=== PATIENT | female | born 1965 | race Caucasian/White ===

== ENCOUNTER 2019-05-17 08:17 | Outpatient (CLI) | payer OTHER, SELFPAY ==
[2019-05-17 14:20] LABS: Free T4 Free Thyroxine 1.08 ng/mL (0.78-2.19)
== END 2019-05-17 08:18 | disposition home or self-care (01) ==
LOC: ANHWCLAB 08:21
PROVIDERS: PCP Internal Medicine Endocrinology, Diabetes & Metabolism; Visit Provider Internal Medicine Endocrinology, Diabetes & Metabolism
DX: E03.9 Hypothyroidism, unspecified (principal)
CPT/HCPCS: 36415; 84439; 84443

== ENCOUNTER 2022-05-07 08:49 | Outpatient (CLI) | payer OTHER, SELFPAY ==
[2022-05-07 17:05] LABS: Free T4 Free Thyroxine 1.12 ng/mL (0.78-2.19)
== END 2022-05-07 08:50 | disposition home or self-care (01) ==
LOC: ANHWCLAB 08:50
PROVIDERS: PCP Internal Medicine Endocrinology, Diabetes & Metabolism; Visit Provider Internal Medicine Endocrinology, Diabetes & Metabolism
DX: E03.9 Hypothyroidism, unspecified (principal)
CPT/HCPCS: 36415; 84439; 84443

== ENCOUNTER 2024-08-23 12:27 | Outpatient (CLI) | payer OTHER, SELFPAY ==
--- NOTE | ~2024-08-23 | DEXA_ITS ---
Bone Density Report Name: LUISA BARLOW Age: 59 Sex: Female Ethnicity: White Date of : 1965 Indication: postmenopausal; screening for osteoporosis; parental hip fracture; Referring Provider: ALMAZ CHI Study: Bone densitometry was performed. Exam Date: August 23, 2024 Accession number: [id number] Bone Density: Region BMD T-score Z-score Classification AP Spine(L1-L4) 0.688 -3.3 -1.8 Osteoporosis Femoral Neck (Left) 0.571 -2.5 -1.2 Osteoporosis Total Hip (Left) 0.683 -2.1 -1.1 Osteopenia Femoral Neck (Right) 0.629 -2.0 -0.6 Osteopenia Total Hip (Right) 0.721 -1.8 -0.8 Osteopenia Total Hip Mean 0.702 -2.0 -1.0 Osteopenia World Health Organization criteria for BMD impression classify patients as: Normal (T-score at or above -1.0), Osteopenia (T-score between -1.0 and -2.5), or Osteoporosis (T-score at or below -2.5). 10-year Fracture Risk: FRAX not reported because: Some T-score for Spine Total or Hip Total or Femoral Neck at or below -2.5 Clinical Information Provided by Patient: Parent has had a hip fracture Has used the following medications: Vitamin D, Calcium Patient maximum height was 66 Menopause Age: 50 Drinks caffeinated beverages Onset of menses at age 10 Number of children 2 Impression: The patient has osteoporosis, based on the Total Spine T-score. The patient has risk factors, including: parental hip fracture. Discussion: INCREASED RISK OF FRACTURE. BONE DENSITY IS UNDESIRABLY LOW AT ONE OR MORE SKELETAL SITES, CONSISTENT WITH POSTMENOPAUSAL OSTEOPOROSIS. This patient's lowest T-score meets the World Health Organization's (WHO) criteria for osteoporosis at one or more sites (T-score -2.5 or below). In untreated patients, the risk of osteoporotic fracture increases approximately two-fold for each 1.0 SD decrease in T-score. Low bone density is not the only risk factor for fracture; also consider factors such as patient's age, frailty or poor health, risk of falling, risk of injury, previous osteoporotic fracture, family history of osteoporosis, cigarette smoking, low body weight, etc. Not everyone with low bone mineral density has osteoporosis; osteomalacia and other metabolic bone disorders should also be considered. Patients who have osteoporosis should be evaluated for specific diseases and conditions (secondary causes) that may cause or contribute to bone loss. The [place] [employer] Endocrinologists (AACE) and National Osteoporosis Foundation (NOF) recommend pharmacologic intervention for all postmenopausal women whose T-score is in this range. The patient should follow a healthful lifestyle (good nutrition with adequate calcium and vitamin D, and appropriate weight-bearing exercise). Follow-Up: Consider a repeat BMD and Vertebral Fracture Assessment (VFA) exam in 2 years or sooner if medically necessary, to reassess this patient's status. Reported by: DANIKA on 08/23/2024 1:02:00 PM. Reviewed, dictated and finalized at location [facility]. [facility]
--- OUTSIDE RECORDS SUMMARY | 2024-08-23 12:50 | XMS_ITS | Clinical Summary ---
Author Organization [facility] [address] [place] [address] Care Team Providers Care Pluck Separator Name Role Phone Breanna Castañeda MD Primary Care Provider [phone] Allergies Active Allergy Reactions Criticality Noted Date Comments Sulfamethoxazole-Trimethoprim Hives Medium 2013 Medications dilTIAZem CD 180 mg 24 hr capsule Take by mouth daily 2 Active levothyroxine (SYNTHROID) 75 mcg tablet Take 75 mcg by mouth daily 2 Active fluticasone propionate (FLONASE) 50 mcg/actuation nasal spray fluticasone propionate 50 mcg/actuation nasal spray,suspension Active biotin 10 mg tablet Active acidophilus-pec tin, citrus 100 million cell-10 mg capsule Take by mouth Activ e loratadine (CLARITIN) 10 mg tablet Take 10 mg by mouth daily Active cholecalciferol (VITAMIN D-3) 400 unit capsule Active vitamin B complex capsule Take 1 capsule by mouth daily Active cyanocobalamin, vitamin B-12, 1,000 mcg tablet extended release Take by mouth Active multivitamin capsule Take 1 capsule by mouth daily Active omeprazole (PriLOSEC) 20 mg capsuleIndicati ons:Laryngophar yngeal reflux (LPR) Take 1 capsule (20 mg total) by mouth 2 (two) times a day before breakfast and dinner 60 capsule 2 2 Active famotidine (PEPCID) 20 mg tabletIndicatio ns:Laryngophary ngeal reflux (LPR) Take 1 tablet (20 mg total) by mouth nightly 30 tablet 3 Active diclofenac sodium (VOLTAREN) 1 % gel diclofenac 1 % topical gel apply to affected area prn Active Active Problems Problem Noted Date Diagnosed Date Hoarseness 03/24/2022 Laryngopharyngeal reflux (LPR) 03/24/2022 PND (post-nasal drip) 03/24/2022 Allergic rhinitis Surgical History Surgery Date Site/Laterality Comments LIPOMA RESECTION from breast BREAST EXCISIONAL BIOPSY Lipoma Medical History Medical History Date Comments Allergic rhinitis Heart disease Thyroid disease Tinnitus Family History Medical History Relation Name Comments Cancer Father Thyroid disease Father Asthma Mother Heart disease Mother Thyroid disease Mother Breast cancer Neg Hx Relation Name Status Comments Father Mother Social History Tobacco Use Types Packs/Day Years Used Date Smoking Tobacco: Never Smokeless Tobacco: Never Tobacco Cessation:Counseling Given: Not Answered Personal Safety Answer Date Recorded Getting School Help Needed Not on file 04/20 Comments No Sex and Gender Information Value Date Recorded Sex Assigned at Not on file 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 Gender Identity Not on file Sexual Orientation Not on file Obstetrics History Para Term AB IAB SAB Ectopic Multiple Livin g Live Births 3 2 2 Date Outcome GA Total Labor Labor/2nd/3rd Weight Sex Type Anes PTL Ussu A1 A5 Name Clin Term Term Last Filed Vital Signs Vital Sign Reading Time Taken Comments Blood Pressure - - Pulse - - Temperature - - Respiratory Rate 18 03/22/2022 1:56 PM SPRING UP SUPERVISOR Oxygen Saturation - - Inhaled Oxygen Concentration - - Weight 59 kg (130 lb) 04/23/2022 1:23 PM SPRING UP SUPERVISOR Height 167.6 cm (5' 6 ) 04/23/2022 1:23 PM SPRING UP SUPERVISOR Body Mass Index 20.98 04/23/2022 1:23 PM SPRING UP SUPERVISOR Plan of Treatment Health Maintenance Due Date Last Done Comments Cervical Cancer Screening 1963 Colon Cancer Screening-Colonoscopy 1963 Depression Screening 1963 Hepatitis C Screening 1963 Hepatitis B Screening 1981 Regular Well Visit/Exam 18-64 1981 Zoster Vaccine (2 of 2) 06/30/2023 05/05/2023 Covid-19 Vaccine ( season) 2023 09/19/2021, 03/02/2021, 05/30/2020, Additional history exists Breast Cancer Screening-Mammogram 11/04/2024 11/05/2023, 10/17/2022, 11/14/2017, Additional history exists DTaP/Tdap/Td Vaccine (3 - Td or Tdap) 10/25/2029 10/26/2019, 02/25/2008 Influenza Vaccine Completed 02/03/2024, , 01/29/2022, Additional history exists Pneumococcal vaccine <65 Aged Out No longer eligible based on patient's age to complete this topic Procedures Procedure Name Priority Date/Time Associated Diagnosis Comments SCREENING MAMMOGRAM BILATERAL W TONY Schedule Routine, Read Routine (OP Routine) 11/05/2023 3:28 PM CDT Screening mammogram, encounter for from Last 3 Months or Most Recently Relevant to Health Maintenance Results * Screening Mammogram Bilateral W Tony (11/05/2023 3:28 PM CDT) Anatomical Region Laterality Modality Breast Bilateral Mammography Impressions 11/05/2023 3:34 PM CDT BI-RADS ATLAS category (overall): 1 - Negative There is no mammographic evidence of malignancy. A 1 year screening mammogram is recommended. The patient has been or will be contacted. We recommend annual screening mammography for women at average risk of breast cancer beginning at age 40, based on guidelines of the [employer] (ACR Practice Parameter for the Performance of Screening and Diagnostic Mammography) and [employer]. For women with and elevated risk of breast cancer, please refer to the ACR Practice Parameter for specific screening recommendations. The patient will be entered into a reminder system with a target due date of 1 year for her next screening exam. Narrative 11/05/2023 3:34 PM CDT Screening Mammogram Bilateral W Tony: 11/05/23 The study was acquired using full field digital technology and interpreted from soft copy. 2D digital mammographic views, as well as 3D digital tomosynthesis were performed in the CC and MLO projections. CLINICAL: Screening mammogram, encounter for. No relevant medical history has been documented for this patient. History of breast cancer in Neg Hx. COMPARISONS: 10/17/2022 Screening Mammogram Bilateral W Tony BREAST TISSUE: The breasts are heterogeneously dense, which may obscure small masses. FINDINGS: No suspicious masses, suspicious calcifications, or other suspicious findings are seen within either breast. There has been no suspicious change. us Self Screening Mammogram IMG MAMMO PROCEDURES Fi nal Result from Last 3 Months or Most Recently Relevant to Health Maintenance Insurance Care Teams Pluck Separator Relationship Specialty Start Date End Date Breanna Castañeda MD [address] [address] PCP - General Family Medicine 01/11/22
--- OUTSIDE RECORDS SUMMARY | 2024-08-23 12:51 | XMS_ITS | Referral Summary ---
Author Organization [facility] [address] [place] [address] Care Team Providers Care Heat Treat Worker Name Role Phone Breanna Castañeda MD Primary Care Provider Allergies Active Allergy Reactions Criticality Noted Date [...] 03/24/2022 PND (post-nasal drip) 03/24/2022 Allergic rhinitis Social History Tobacco Use Types Packs/Day Years Used Date Smoking Tobacco: Never Smokeless Tobacco: Never Tobacco Cessation:Counseling Given: Not Answered Personal Safety Answer Date Recorded Getting School Help Needed Not on file 04/20 Comments No Sex and Gender Information Value Date Recorded Sex Assigned at Not on file Legal Sex Female 1:04 PM IT INTERN Gender Identity Not on file Sexual Orientation Not on file Last Filed Vital Signs Vital Sign Reading Time Taken Comments Blood Pressure - - Pulse - - Temperature - - Respiratory Rate 18 03/22/2022 1:56 PM IT INTERN Oxygen Saturation - - Inhaled Oxygen Concentration - - Weight 59 kg (130 lb) 04/23/2022 1:23 PM IT INTERN Height 167.6 cm (5' 6 ) 04/23/2022 1:23 PM IT INTERN Body Mass Index 20.98 04/23/2022 1:23 PM IT INTERN Plan of Treatment Not on file Procedures Procedure Name Priority Date/Time Associated Diagnosis [...] age 40, based on guidelines of the [employer] (ACR Practice Parameter for the Performance of Screening and Diagnostic Mammography) and [employer]. For women [...] Relevant to Health Maintenance Insurance Care Teams Heat Treat Worker Relationship Specialty Start Date End Date Breanna Castañeda MD [address] [address] PCP - General Family Medicine 01/11/22
--- OUTSIDE RECORDS SUMMARY | 2024-08-23 12:51 | XMS_ITS | Clinical Summary ---
Author Organization [facility] Care Team Providers Care Campus Security Director Name Role Phone Unavailable Primary Care Provider Unavailabl e Social History Tobacco Use Types Packs/Day Years Used Date Smoking Tobacco: Never Assessed Comments Unknown Sex and Gender Information Value Date Recorded Sex Assigned at Not on file Legal Sex Female 11:03 AM TELEPHONE SERVICE REPRESENTATIVE Gender Identity Not on file Sexual Orientation Not on file Plan of Treatment Health Maintenance Due Date Last Done Comments Hepatitis C Virus (HCV) Screening 1963 Pap Smear 1984 Cervical Cancer Screening (CCS) 1993 HPV/Cotest 1993 Colonoscopy 2008 Colorectal Cancer Screening 2008 Cologuard 2013 Immunochemical Fecal Occult Blood 2013 Mammogram 2013 Pneumococcal Immunization (50+ years) (1 of 1 - PCV) 2013 Zoster Immunization (1 of 2) 2013 Influenza Immunization (#1) 2023 10/0 04/2018, 01/28/2017, 02/06/2016, Additional history exists SARS-COV-2 Immunization ( season) 2023 Respiratory Syncytial Virus (RSV) Immunization (Adult) (1 - 1-dose 75+ series) 2038 DTaP/Tdap/Td Immunization Discontinued 10/26/2019, 09/2007 TdaP Immunization Completed 10/26/2019, 02/25/2008 Hepatitis B Immunization Aged Out No longer eligible based on patient's age to complete this topic Meningococcal Immunization (ACWY) Aged Out No longer eligible based on patient's age to complete this topic Pneumococcal Immunization Combined Aged Out No longer eligible based on patient's age to complete this topic Rotavirus Immunization Aged Out No lo nger eligible based on patient's age to complete this topic
--- OUTSIDE RECORDS SUMMARY | 2024-08-23 12:51 | XMS_ITS | Data Portability ---
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 Assessment Encounter Date Assessment Date Assessment LastModified by Organization Details LastModified Time 08/23/2022 08/23/2022 colon cancer screening not due again until 03/2024-- last done 03/2014 and normal [email or web address] Not available 08/23/2022 12:21:12 Plan of Treatment Reminders Order Date Submit Date Provider Last Modified By Organization Details Last Modified Time Details Appointments ANNUAL 30 2024 09:30A M Breanna Montez MD Not available Not available Not available Lab lipid panel, serum 2023 024 [facility] [employer], [address], [place], [address], 10/29/2023 03:08:44 CMP, serum or plasma 2023 024 [facility] [employer] [address], [place], [address], 10/29/2023 03:08:45 CBC 2023 024 [facility], [address], [place], [address], 10/29/2023 03:08:45 CMP, serum or plasma 2022 023 [facility], [address], [address], [place], [address], 09/13/2022 04:11:23 CBC w/ auto diff 2022 023 [facility], [address], [address], [place], [address], 09/13/2022 04:11:24 magnesiu m, serum or plasma 2022 023 [facility], [address], [address], [place], [address], 09/13/2022 04:11:24 cytology report, thin prep, smear or scraping , cervical or vaginal 2022 023 [facility], [address], [address], [place], [address], 08/30/2022 03:10:58 lipid panel, serum 2022 023 [facility], [address], [address], [place], [address], 09/13/2022 04:11:22 TSH + free T4, serum 2022 023 [facility], [address], [address], [place], [address], 09/13/2022 04:11:21 TSH + free T4, serum 2020 021 [facility], [address], [address], [place], [address], 03/30/2021 03:32:48 CMP, serum or plasma 2020 021 [facility], [address], [address], [place], [address], 03/30/2021 03:32:49 CBC 2020 021 [facility], [address], [address], [place], [address], 03/30/2021 03:32:50 Referral None recorded . Procedures None recorded . Surgeries None recorded . Imaging MAMMO, screenin g, bilatera l 2023 024 [facility] Special Procedures Only, [address], [address], [place], [address], 01/22/2024 16:35:54 US, echocard iogram, transtho racic, complete , w/ color flow - please call patient to set up this test-- is best number-- alternat tramaine is cell 2022 023 [facility] Centralized Scheduling, Centralized Scheduling, [address] [place], [address], 09/27/2022 12:55:15 holter monitor - please call patient to set up this test-- is best number-- alternat tramaine is cell [phone] 2022 023 [facility] Centralized Scheduling, Centralized Scheduling, [address] [place], [address], 10/03/2022 12:50:33 MAMMO, screenin g, digital, bilatera l 2022 023 [facility] [place], [address], [place], [address], 10/17/2022 10:46:44 MAMMO, screenin g, bilatera l [address] [facility] Special Procedures Only, [address] [facility], [place] [address], [place], [address], 03/28/2021 16:29:42 Medication Orders benzonat ate 200 mg capsule 2021 [facility] #[id number], [address], [place], [id number], 08/23/2022 12:01:57 amoxicil monty 875 mg-potas sium clavulan ate 125 mg tablet 2021 [facility] #[id number], [address], [place], [id number], 08/23/2022 12:01:52 Medrol (Asher) 4 mg tablets in a dose pack 2021 [facility] #[id number], [address], [place], [id number], 09/03/2021 13:30:34 azithrom ycin 250 mg tablet 2021 [facility] #[id number], [address], [place], [id number], 09/03/2021 13:30:29 diclofen ac 1 % topical gel 2020 021 [facility] #[id number], [address], [place], [id number], 03/28/2021 16:27:10 Patient TargetsNo targets recorded. Patient InstructionsNo instructions recorded. Reason for Referral None Reported. Results Created Date Observation Date Name Description Value Unit Range Abnormal Flag Note LastModifiedBy Organization Detail LastModifiedTime 03/28/20 21 03/30/2021 TSH+F REE T4 TSH 2.32 mIU/L 0.40-4 .50 normal Not Available [address], [address], 03/30/2021 03:32:48 03/28/2003/30/2021 TSH+F REE T4 T4, free 1.3 NG/dL 0.8-1. 8 normal Not Available [address], [address], 03/30/2021 03:32:48 03/28/20 21 03/30/2021 COMPR EHENS TRAMAINE METAB OLIC PANEL glucose 88 mg/dL 65-99 normal Fasti ng refer ence inter isaak Not Available [address], [address], 03/30/2021 03:32:49 03/28/20 21 03/30/2021 COMPR EHENS TRAMAINE METAB OLIC PANEL urea nitrogen (BUN) 17 mg/dL 7-25 normal Not Available [address], [address], 03/30/2021 03:32:49 03/28/2003/30/2021 COMPR EHENS TRAMAINE METAB OLIC PANEL creatinine 0.77 mg/dL 0.50-1 .05 normal For patie nts >49 years of age, the refer ence limit for Creat inine is appro ximat hilary 13% highe r for peopl e ident ified as Afric an-Am sarah n. Not Available [address], [address], 03/30/2021 03:32:49 03/28/2003/30/2021 COMPR EHENS TRAMAINE METAB OLIC PANEL eGFR non-afr. panamanian 86 mL/mi n/1.7 3m2 > or = 60 normal Not Available [address], [address], 03/30/2021 03:32:49 03/28/20 21 03/30/2021 COMPR EHENS TRAMAINE METAB OLIC PANEL eGFR 99 mL/mi n/1.7 3m2 > or = 60 normal Not Available [address], [address], 03/30/2021 03:32:49 03/28/20 21 03/30/2021 COMPR EHENS TRAMAINE METAB OLIC PANEL BUN/creatini ne ratio NOT APPLIC ABLE (calc ) 6-22 Not Available [address], [address], 03/30/2021 03:32:49 03/28/20 21 03/30/2021 COMPR EHENS TRAMAINE METAB OLIC PANEL sodium 139 mmol/ L 135-14 6 normal Not Available [address], [address], 03/30/2021 03:32:49 03/28/20 21 03/30/2021 COMPR EHENS TRAMAINE METAB OLIC PANEL potassium 4.8 mmol/ L 3.5-5. 3 normal Not Available [address], [address], 03/30/2021 03:32:49 03/28/20 21 03/30/2021 COMPR EHENS TRAMAINE METAB OLIC PANEL chloride 104 mmol/ L 98-110 normal Not Available [address], [address], 03/30/2021 03:32:49 03/28/20 21 03/30/2021 COMPR EHENS TRAMAINE METAB OLIC PANEL carbon dioxide 24 mmol/ L 20-32 normal Not Available [address], [address], 03/30/2021 03:32:49 03/28/20 21 03/30/2021 COMPR EHENS TRAMAINE METAB OLIC PANEL calcium 9.9 mg/dL 8.6-10 .4 normal Not Available [address], [address], 03/30/2021 03:32:49 03/28/20 21 03/30/2021 COMPR EHENS TRAMAINE METAB OLIC PANEL protein, total 7.5 g/dL 6.1-8. 1 normal Not Available [address], [address], 03/30/2021 03:32:49 03/28/20 21 03/30/2021 COMPR EHENS TRAMAINE METAB OLIC PANEL albumin 4.7 g/dL 3.6-5. 1 normal Not Available [address], [address], 03/30/2021 03:32:49 03/28/20 21 03/30/2021 COMPR EHENS TRAMAINE METAB OLIC PANEL globulin 2.8 g/dL_ (calc ) 1.9-3. 7 normal Not Available [address], [address], 03/30/2021 03:32:49 03/28/2003/30/2021 COMPR EHENS TRAMAINE METAB OLIC PANEL albumin/glob ulin ratio 1.7 (calc ) 1.0-2. 5 normal Not Available [address], [address], 03/30/2021 03:32:49 03/28/2003/30/2021 COMPR EHENS TRAMAINE METAB OLIC PANEL bilirubin, total 0.3 mg/dL 0.2-1. 2 normal Not Available [address], [address], 03/30/2021 03:32:49 03/28/20 21 03/30/2021 COMPR EHENS TRAMAINE METAB OLIC PANEL alkaline phosphatase 116 U/L 37-153 normal Not Available [address] [address] [place], [address], 03/30/2021 03:32:49 03/28/20 21 03/30/2021 COMPR EHENS TRAMAINE METAB OLIC PANEL AST 22 U/L 10-35 normal Not Available [address], [address], 03/30/2021 03:32:49 03/28/20 21 03/30/2021 COMPR EHENS TRAMAINE METAB OLIC PANEL ALT 15 U/L 6-29 normal Not Available [address], [address], 03/30/2021 03:32:49 03/28/20 21 03/30/2021 CBC (H/H, RBC, INDIC ES, WBC, PLT) white blood cell count 8.1 thous and/u L 3.8-10 .8 normal Not Available [address], [address], 03/30/2021 03:32:50 03/28/20 21 03/30/2021 CBC (H/H, RBC, INDIC ES, WBC, PLT) red blood cell count 4.08 wendy on/uL 3.80-5 .10 normal Not Available [address], [address], 03/30/2021 03:32:50 03/28/20 21 03/30/2021 CBC (H/H, RBC, INDIC ES, WBC, PLT) hemoglobin 12.5 g/dL 11.7-1 5.5 normal Not Available [address], [address], 03/30/2021 03:32:50 03/28/20 21 03/30/2021 CBC (H/H, RBC, INDIC ES, WBC, PLT) hematocrit 38.4 % 35.0-4 5.0 normal Not Available [address], [address], 03/30/2021 03:32:50 03/28/20 21 03/30/2021 CBC (H/H, RBC, INDIC ES, WBC, PLT) MCV 94.1 fL 80.0-1 00.0 normal Not Available [address], [address], 03/30/2021 03:32:50 03/28/20 21 03/30/2021 CBC (H/H, RBC, INDIC ES, WBC, PLT) MCH 30.6 pg 27.0-3 3.0 normal Not Available [address], [address], 03/30/2021 03:32:50 03/28/2003/30/2021 CBC (H/H, RBC, INDIC ES, WBC, PLT) MCHC 32.6 g/dL 32.0-3 6.0 normal Not Available [address], [address], 03/30/2021 03:32:50 03/28/2003/30/2021 CBC (H/H, RBC, INDIC ES, WBC, PLT) RDW 12.6 % 11.0-1 5.0 normal Not Available [address], [address], 03/30/2021 03:32:50 03/28/2003/30/2021 CBC (H/H, RBC, INDIC ES, WBC, PLT) platelet count 353 thous and/u L 140-40 0 normal Not Available [address], [address], 03/30/2021 03:32:50 03/28/2003/30/2021 CBC (H/H, RBC, INDIC ES, WBC, PLT) MPV 10.2 fL 7.5-12 .[address] to have a dupli emilia copy faxed has been daniel nunnedg ed. Queue d to: [phone] Not Available [address] [place], [address], 03/30/2021 03:32:50 09/21/19 22 09/21/2021 CBC WITH DIFFE RENTI AL/PL ATELE T WBC 10.6 x10e3 /uL 3.4-10 .8 Not Available [facility] ([facility]) [address] [place], [address], 09/21/2021 08:23:20 09/21/19 22 09/21/2021 CBC WITH DIFFE RENTI AL/PL ATELE T RBC 4.07 x10e6 /uL 3.77-5 .28 Not Available [facility] ([facility]) [address] [place], [address], 09/21/2021 08:23:20 09/21/19 22 09/21/2021 CBC WITH DIFFE RENTI AL/PL ATELE T hemoglobin 12.6 g/dL 11.1-1 5.9 Not Available [facility] ([facility]) [address] [place], [address], 09/21/2021 08:23:20 09/21/19 22 09/21/2021 CBC WITH DIFFE RENTI AL/PL ATELE T hematocrit 38.4 % 34.0-4 6.6 Not Available [facility] ([facility]) [address] [place], [address], 09/21/2021 08:23:20 09/21/19 22 09/21/2021 CBC WITH DIFFE RENTI AL/PL ATELE T MCV 94 fL 79-97 Not Available [facility] ([facility]) [address] [place], [address], 09/21/2021 08:23:20 09/21/19 22 09/21/2021 CBC WITH DIFFE RENTI AL/PL ATELE T MCH 31.0 pg 26.6-3 3.0 Not Available [facility] ([facility]) [address] [place], [address], 09/21/2021 08:23:20 09/21/19 22 09/21/2021 CBC WITH DIFFE RENTI AL/PL ATELE T MCHC 32.8 g/dL 31.5-3 5.7 Not Available [facility] ([facility]) [address] [facility], [place], [address], 09/21/2021 08:23:20 09/21/19 22 09/21/2021 CBC WITH DIFFE RENTI AL/PL ATELE T RDW 12.5 % 11.7-1 5.4 Not Available [facility] ([facility]) [address] [facility], [place], [address], 09/21/2021 08:23:20 09/21/19 22 09/21/2021 CBC WITH DIFFE RENTI AL/PL ATELE T platelets 433 x10e3 /uL 150-45 0 Not Available [facility] ([facility]) [address] [facility], [place], [address], 09/21/2021 08:23:20 09/21/19 22 09/21/2021 CBC WITH DIFFE RENTI AL/PL ATELE T neutrophils 83 % not estab. Not Available [facility] ([facility]) [address] [facility], [place], [address], 09/21/2021 08:23:20 09/21/19 22 09/21/2021 CBC WITH DIFFE RENTI AL/PL ATELE T lymphs 10 % not estab. Not Available [facility] ([facility]) [address] [facility], [place], [address], 09/21/2021 08:23:20 09/21/19 22 09/21/2021 CBC WITH DIFFE RENTI AL/PL ATELE T monocytes 5 % not estab. Not Available [facility] ([facility]) [address] [facility], [place], [address], 09/21/2021 08:23:20 09/21/19 22 09/21/2021 CBC WITH DIFFE RENTI AL/PL ATELE T eos 1 % not estab. Not Available [facility] ([facility]) [address] [facility], [place], [address], 09/21/2021 08:23:20 09/21/19 22 09/21/2021 CBC WITH DIFFE RENTI AL/PL ATELE T basos 1 % not estab. Not Available [facility] ([facility]) [address] [place], [address], 09/21/2021 08:23:20 09/21/19 22 09/21/2021 CBC WITH DIFFE RENTI AL/PL ATELE T immature cells GAMBRELER Not Available [facility] ([facility]) [address] [place], [address], 09/21/2021 08:23:20 09/21/19 22 09/21/2021 CBC WITH DIFFE RENTI AL/PL ATELE T neutrophils (absolute) 8.8 x10e3 /uL 1.4-7. 0 above high normal Not Available [facility] ([facility]) [address] [place], [address], 09/21/2021 08:23:20 09/21/19 22 09/21/2021 CBC WITH DIFFE RENTI AL/PL ATELE T lymphs (absolute) 1.0 x10e3 /uL 0.7-3. 1 Not Available [facility] ([facility]) [address] [place], [address], 09/21/2021 08:23:20 09/21/19 22 09/21/2021 CBC WITH DIFFE RENTI AL/PL ATELE T monocytes(ab solute) 0.6 x10e3 /uL 0.1-0. 9 Not Available [facility] ([facility]) [address] [place], [address], 09/21/2021 08:23:20 09/21/19 22 09/21/2021 CBC WITH DIFFE RENTI AL/PL ATELE T eos (absolute) 0.1 x10e3 /uL 0.0-0. 4 Not Available [facility] ([facility]) [address] [facility], [place], [address], 09/21/2021 08:23:20 09/21/19 22 09/21/2021 CBC WITH DIFFE RENTI AL/PL ATELE T baso (absolute) 0.1 x10e3 /uL 0.0-0. 2 Not Available [facility] ([facility]) [address] [facility], [place], [address], 09/21/2021 08:23:20 09/21/19 22 09/21/2021 CBC WITH DIFFE RENTI AL/PL ATELE T immature granulocytes 0 % not estab. Not Available [facility] ([facility]) [address] [facility], [place], [address], 09/21/2021 08:23:20 09/21/19 22 09/21/2021 CBC WITH DIFFE RENTI AL/PL ATELE T immature grans (abs) 0.0 x10e3 /uL 0.0-0. 1 Not Available [facility] ([facility]) [address] [facility], [place], [address], 09/21/2021 08:23:20 09/21/19 22 09/21/2021 CBC WITH DIFFE RENTI AL/PL ATELE T NRBC GAMBRELER Not Available [facility] ([facility]) [address] [facility], [place], [address], 09/21/2021 08:23:20 09/21/19 22 09/21/2021 CBC WITH DIFFE RENTI AL/PL ATELE T hematology comments: GAMBRELER Not Available [facility] ([facility]) [address] [facility], [place], [address], 09/21/2021 08:23:20 06/02/20 22 09/21/2021 COMP. METAB OLIC PANEL (14) glucose 86 mg/dL 65-99 Not Available [facility] ([facility]) [address] [place], [address], 09/21/2021 08:23:20 09/21/19 22 09/21/2021 COMP. METAB OLIC PANEL (14) BUN 12 mg/dL 6-24 Not Available [facility] ([facility]) [address] [place], [address], 09/21/2021 08:23:20 09/21/19 22 09/21/2021 COMP. METAB OLIC PANEL (14) creatinine 0.65 mg/dL 0.57-1 .00 Not Available [facility] ([facility]) [address] [place], [address], 09/21/2021 08:23:20 09/21/19 22 09/21/2021 COMP. METAB OLIC PANEL (14) eGFR 102 mL/mi n/1.7 3 >59 Not Available [facility] ([facility]) [address] [place], [address], 09/21/2021 08:23:20 09/21/19 22 09/21/2021 COMP. METAB OLIC PANEL (14) BUN/creatini ne ratio 18 9-23 Not Available [facility] ([facility]) [address] [place], [address], 09/21/2021 08:23:20 09/21/19 22 09/21/2021 COMP. METAB OLIC PANEL (14) sodium 137 mmol/ L 134-14 4 Not Available [facility] ([facility]) [address] [place], [address], 09/21/2021 08:23:20 09/21/19 22 09/21/2021 COMP. METAB OLIC PANEL (14) potassium 4.0 mmol/ L 3.5-5. 2 Not Available [facility] ([facility]) [address] [place], [address], 09/21/2021 08:23:20 09/21/19 22 09/21/2021 COMP. METAB OLIC PANEL (14) chloride 100 mmol/ L 96-106 Not Available [facility] ([facility]) [address] [place], [address], 09/21/2021 08:23:20 09/21/19 22 09/21/2021 COMP. METAB OLIC PANEL (14) carbon dioxide, total 22 mmol/ L 20-29 Not Available [facility] ([facility]) [address] [place], [address], 09/21/2021 08:23:20 09/21/19 22 09/21/2021 COMP. METAB OLIC PANEL (14) calcium 9.6 mg/dL 8.7-10 .2 Not Available [facility] ([facility]) [address] [place], [address], 09/21/2021 08:23:20 09/21/19 22 09/21/2021 COMP. METAB OLIC PANEL (14) protein, total 7.2 g/dL 6.0-8. 5 Not Available [facility] ([facility]) [address] [facility] [place], [address], 09/21/2021 08:23:20 09/21/19 22 09/21/2021 COMP. METAB OLIC PANEL (14) albumin 4.6 g/dL 3.8-4. 9 Not Available [facility] ([facility] [address] [facility] [place], [address], 09/21/2021 08:23:20 09/21/19 22 09/21/2021 COMP. METAB OLIC PANEL (14) globulin, total 2.6 g/dL 1.5-4. 5 Not Available [facility] ([place] [facility]) [address] [facility] [place], [address], 09/21/2021 08:23:20 09/21/19 22 09/21/2021 COMP. METAB OLIC PANEL (14) A/G ratio 1.8 1.2-2. 2 Not Available [facility] ([facility]) [address] [place], [address], 09/21/2021 08:23:20 09/21/19 22 09/21/2021 COMP. METAB OLIC PANEL (14) bilirubin, total 0.4 mg/dL 0.0-1. 2 Not Available [facility] ([facility]) [address] [facility] [place], [address], 09/21/2021 08:23:20 09/21/19 22 09/21/2021 COMP. METAB OLIC PANEL (14) alkaline phosphatase 129 IU/L 44-121 above high normal Not Available [facility] ([facility]) [address] [facility] [place], [address], 09/21/2021 08:23:20 09/21/19 22 09/21/2021 COMP. METAB OLIC PANEL (14) AST (SGOT) 22 IU/L 0-40 Not Available [facility] ([facility]) [address] [facility] [place], [address], 09/21/2021 08:23:20 09/21/19 22 09/21/2021 COMP. METAB OLIC PANEL (14) ALT (SGPT) 27 IU/L 0-32 Not Available [facility] ([facility]) [address] [facility] [place], [address], 09/21/2021 08:23:20 09/21/19 22 09/21/2021 TSH TSH 1.620 uIU/m L 0.450- 4.500 Not Available [facility] ([facility]) [address] [facility] [place], [address], 09/21/2021 08:23:21 09/21/19 22 09/21/2021 SEDIM ENTAT ION RATE- MEIRE RGREN sedimentatio n rate-sandy cathy 8 mm/HR 0-40 Not Available [facility] ([facility]) [address] [facility], [place], [address], 09/21/2021 08:23:21 10/30/19 22 10/30/2021 CBC WITH DIFFE RENTI AL/PL ATELE T WBC 6.3 x10e3 /uL 3.4-10 .8 Not Available [facility] ([facility]) [address] [facility], [place], [address], 10/30/2021 05:09:05 10/30/19 22 10/30/2021 CBC WITH DIFFE RENTI AL/PL ATELE T RBC 4.09 x10e6 /uL 3.77-5 .28 Not Available [facility] ([facility]) [address] [facility], [place], [address], 10/30/2021 05:09:05 10/30/19 22 10/30/2021 CBC WITH DIFFE RENTI AL/PL ATELE T hemoglobin 12.6 g/dL 11.1-1 5.9 Not Available [facility] ([facility]) [address] [facility], [place], [address], 10/30/2021 05:09:05 10/30/19 22 10/30/2021 CBC WITH DIFFE RENTI AL/PL ATELE T hematocrit 38.7 % 34.0-4 6.6 Not Available [facility] ([facility]) [address] [place], [address], 10/30/2021 05:09:05 10/30/19 22 10/30/2021 CBC WITH DIFFE RENTI AL/PL ATELE T MCV 95 fL 79-97 Not Available [facility] ([facility]) [address] [place], [address], 10/30/2021 05:09:05 10/30/19 22 10/30/2021 CBC WITH DIFFE RENTI AL/PL ATELE T MCH 30.8 pg 26.6-3 3.0 Not Available [facility] ([facility]) [address] [facility], [place], [address], 10/30/2021 05:09:05 10/30/19 22 10/30/2021 CBC WITH DIFFE RENTI AL/PL ATELE T MCHC 32.6 g/dL 31.5-3 5.7 Not Available [facility] ([facility]) [address] [facility], [place], [address], 10/30/2021 05:09:05 10/30/19 22 10/30/2021 CBC WITH DIFFE RENTI AL/PL ATELE T RDW 12.5 % 11.7-1 5.4 Not Available [facility] ([facility]) [address] [facility], [place], [address], 10/30/2021 05:09:05 10/30/19 22 10/30/2021 CBC WITH DIFFE RENTI AL/PL ATELE T platelets 370 x10e3 /uL 150-45 0 Not Available [facility] ([facility]) [address] [facility], [place], [address], 10/30/2021 05:09:05 10/30/19 22 10/30/2021 CBC WITH DIFFE RENTI AL/PL ATELE T neutrophils 61 % not estab. Not Available [facility] ([facility]) [address] [facility], [place], [address], 10/30/2021 05:09:05 10/30/19 22 10/30/2021 CBC WITH DIFFE RENTI AL/PL ATELE T lymphs 28 % not estab. Not Available [facility] ([facility]) [address] [place], [address], 10/30/2021 05:09:05 10/30/19 22 10/30/2021 CBC WITH DIFFE RENTI AL/PL ATELE T monocytes 8 % not estab. Not Available [facility] ([facility]) [address] [place], [address], 10/30/2021 05:09:05 10/30/19 22 10/30/2021 CBC WITH DIFFE RENTI AL/PL ATELE T eos 2 % not estab. Not Available [facility] ([facility]) [address] [facility], [place], [address], 10/30/2021 05:09:05 10/30/19 22 10/30/2021 CBC WITH DIFFE RENTI AL/PL ATELE T basos 1 % not estab. Not Available [facility] ([facility]) [address] [facility], [place], [address], 10/30/2021 05:09:05 10/30/19 22 10/30/2021 CBC WITH DIFFE RENTI AL/PL ATELE T immature cells GAMBRELER Not Available [facility] ([facility]) [address] [place], [address], 10/30/2021 05:09:05 10/30/19 22 10/30/2021 CBC WITH DIFFE RENTI AL/PL ATELE T neutrophils (absolute) 3.8 x10e3 /uL 1.4-7. 0 Not Available [facility] ([facility]) [address] [place], [address], 10/30/2021 05:09:05 10/30/19 22 10/30/2021 CBC WITH DIFFE RENTI AL/PL ATELE T lymphs (absolute) 1.8 x10e3 /uL 0.7-3. 1 Not Available [facility] ([facility]) [address] [place], [address], 10/30/2021 05:09:05 10/30/19 22 10/30/2021 CBC WITH DIFFE RENTI AL/PL ATELE T monocytes(ab solute) 0.5 x10e3 /uL 0.1-0. 9 Not Available [facility] ([facility]) [address] [facility], [place], [address], 10/30/2021 05:09:05 10/30/19 22 10/30/2021 CBC WITH DIFFE RENTI AL/PL ATELE T eos (absolute) 0.1 x10e3 /uL 0.0-0. 4 Not Available [facility] ([facility]) [address] [facility], [place], [address], 10/30/2021 05:09:05 10/30/19 22 10/30/2021 CBC WITH DIFFE RENTI AL/PL ATELE T baso (absolute) 0.1 x10e3 /uL 0.0-0. 2 Not Available [facility] ([facility]) [address] [facility], [place], [address], 10/30/2021 05:09:05 10/30/19 22 10/30/2021 CBC WITH DIFFE RENTI AL/PL ATELE T immature granulocytes 0 % not estab. Not Available [facility] ([facility]) [address] [facility], [place], [address], 10/30/2021 05:09:05 10/30/19 22 10/30/2021 CBC WITH DIFFE RENTI AL/PL ATELE T immature grans (abs) 0.0 x10e3 /uL 0.0-0. 1 Not Available [facility] ([facility]) [address] [facility], [place], [address], 10/30/2021 05:09:05 10/30/19 22 10/30/2021 CBC WITH DIFFE RENTI AL/PL ATELE T NRBC GAMBRELER Not Available [facility] ([facility]) [address] [facility], [place], [address], 10/30/2021 05:09:05 10/30/19 22 10/30/2021 CBC WITH DIFFE ALBERTO AL/PL VIKTOR Gould hematology comments: GAMBRELER Not Available [facility] ([facility]) [address] [place], [address], 10/30/2021 05:09:05 10/30/19 22 10/30/2021 COMP. METAB OLIC PANEL (14) glucose 84 mg/dL 65-99 Not Available [facility] ([facility]) [address] [place], [address], 10/30/2021 05:09:05 10/30/19 22 10/30/2021 COMP. METAB OLIC PANEL (14) BUN 12 mg/dL 6-24 Not Available [facility] ([facility]) [address] [place], [address], 10/30/2021 05:09:05 10/30/19 22 10/30/2021 COMP. METAB OLIC PANEL (14) creatinine 0.71 mg/dL 0.57-1 .00 Not Available [facility] ([facility]) [address] [place], [address], 10/30/2021 05:09:05 10/30/19 22 10/30/2021 COMP. METAB OLIC PANEL (14) eGFR 98 mL/mi n/1.7 3 >59 Not Available [facility] ([facility]) [address] [place], [address], 10/30/2021 05:09:05 10/30/19 22 10/30/2021 COMP. METAB OLIC PANEL (14) BUN/creatini ne ratio 17 9-23 Not Available [facility] ([facility]) [address] [place], [address], 10/30/2021 05:09:05 10/30/19 22 10/30/2021 COMP. METAB OLIC PANEL (14) sodium 139 mmol/ L 134-14 4 Not Available [facility] ([facility]) [address] [place], [address], 10/30/2021 05:09:05 10/30/19 22 10/30/2021 COMP. METAB OLIC PANEL (14) potassium 4.6 mmol/ L 3.5-5. 2 Not Available [facility] ([facility]) [address] [place], [address], 10/30/2021 05:09:05 10/30/19 22 10/30/2021 COMP. METAB OLIC PANEL (14) chloride 102 mmol/ L 96-106 Not Available [facility] ([facility]) [address] [place], [address], 10/30/2021 05:09:05 10/30/19 22 10/30/2021 COMP. METAB OLIC PANEL (14) carbon dioxide, total 23 mmol/ L 20-29 Not Available [facility] ([facility]) [address] [place], [address], 10/30/2021 05:09:05 10/30/19 22 10/30/2021 COMP. METAB OLIC PANEL (14) calcium 9.8 mg/dL 8.7-10 .2 Not Available [facility] ([facility]) [address] [place], [address], 10/30/2021 05:09:05 10/30/19 22 10/30/2021 COMP. METAB OLIC PANEL (14) protein, total 7.2 g/dL 6.0-8. 5 Not Available [facility] ([facility]) [address] [place], [address], 10/30/2021 05:09:05 10/30/19 22 10/30/2021 COMP. METAB OLIC PANEL (14) albumin 4.6 g/dL 3.8-4. 9 Not Available [facility] ([facility]) [address] [place], [address], 10/30/2021 05:09:05 10/30/19 22 10/30/2021 COMP. METAB OLIC PANEL (14) globulin, total 2.6 g/dL 1.5-4. 5 Not Available [facility] ([facility]) [address] [facility] [place], [address], 10/30/2021 05:09:05 10/30/19 22 10/30/2021 COMP. METAB OLIC PANEL (14) A/G ratio 1.8 1.2-2. 2 Not Available [facility] ([facility]) [address] [facility] [place], [address], 10/30/2021 05:09:05 10/30/19 22 10/30/2021 COMP. METAB OLIC PANEL (14) bilirubin, total 0.3 mg/dL 0.0-1. 2 Not Available [facility] ([facility]) [address] [facility] [place], [address], 10/30/2021 05:09:05 10/30/19 22 10/30/2021 COMP. METAB OLIC PANEL (14) alkaline phosphatase 116 IU/L 44-121 Not Available [facility] ([facility]) [address] [facility] [place], [address], 10/30/2021 05:09:05 10/30/19 22 10/30/2021 COMP. METAB OLIC PANEL (14) AST (SGOT) 21 IU/L 0-40 Not Available [facility] ([facility]) [address] [facility] [place], [address], 10/30/2021 05:09:05 10/30/19 22 10/30/2021 COMP. METAB OLIC PANEL (14) ALT (SGPT) 15 IU/L 0-32 Not Available [facility] ([facility]) [address] [facility] [place], [address], 10/30/2021 05:09:05 08/24/19 23 08/29/2022 IGP, RFX APTIM A HPV ASCU diagnosis: Khadar gould NEGAT TRAMAINE FOR INTRA EPITH ELIAL LESIO N OR MEME ARCHIBALD . CELLCate KING ASSOC IATED WITH ATROP HY ARE PRESE NT. CELLCate KING ASSOC IATED WITH ATROP HY AND INFLA MMATI ON ARE PRESE NT. Not Available [facility] ([facility]) [address] [place], [address], 08/30/2022 03:10:58 08/24/19 23 08/29/2022 IGP, RFX APTIM A HPV ASCU specimen adequacy: Khadar gould Satis facto ry for evalu ation . Endoc ervic al compo nent may not be disti nguis hed in cases of atrop hy. Not Available [facility] ([facility]) [address] [place], [address], 08/30/2022 03:10:58 08/24/19 23 08/29/2022 IGP, RFX APTIM A HPV ASCU clinician provided ICD10: Khadar gould Z01.4 19 Not Available [facility] ([facility]) [address] [place], [address], 08/30/2022 03:10:58 08/24/19 23 08/29/2022 IGP, RFX APTIM A HPV ASCU performed by: Hien Leung (ASCP ) Not Available [facility] ([facility]) [address] [place], [address], 08/30/2022 03:10:58 08/24/19 23 08/29/2022 IGP, RFX APTIM A HPV ASCU . . Not Available [facility] ([facility]) [address] [place], [address], 08/30/2022 03:10:58 08/24/19 23 08/29/2022 IGP, RFX APTIM A HPV ASCU note: Commen t The Pap smear is a scree cristino test desig randall to aid in the detec tion of emmett ligna nt and malig nant condi tions of the uteri ne cervi x. It is not a diagn ostic proce dure and shoul d not be used as the sole means of detec ting cervi yu cance r. Both false -posi tive and false -nega tive repor ts do occur . Not Available [facility] ([facility]) [address] [place], [address], 08/30/2022 03:10:58 08/24/19 23 08/29/2022 IGP, RFX APTIM A HPV ASCU test methodology: Commen t This liqui d based ThinP rep(R ) pap test was scree randall with the use of an image guide reynaldo lu. Not Available [facility] ([facility]) [address] [place], [address], 08/30/2022 03:10:58 08/24/1908/29/2022 IGP, RFX APTIM A HPV ASCU . Commen t The HPV DNA refle x crite michell were not met with this speci men resul t there fore, no HPV testi ng was perfo rmed. Not Available [facility] ([facility]) [address] [place], [address], 08/30/2022 03:10:58 09/13/1909/13/2022 LIPID PANEL cholesterol, total 211 mg/dL 100-19 9 above high normal Not Available [facility] ([facility]) [address] [place], [address], 09/13/2022 04:11:22 09/13/19 23 09/13/2022 LIPID PANEL triglyceride s 95 mg/dL 0-149 Not Available [facility] ([facility]) [address] [place], [address], 09/13/2022 04:11:22 09/13/19 23 09/13/2022 LIPID PANEL HDL cholesterol 61 mg/dL >39 Not Available [facility] ([facility]) [address] [place], [address], 09/13/2022 04:11:22 09/13/19 23 09/13/2022 LIPID PANEL VLDL cholesterol yu 17 mg/dL 5-40 Not Available [facility] ([facility]) [address] [place], [address], 09/13/2022 04:11:22 09/13/19 23 09/13/2022 LIPID PANEL LDL chol calc ([facility]) 133 mg/dL 0-99 above high normal Not Available [facility] ([facility]) [address] [facility], [place], [address], 09/13/2022 04:11:22 09/13/19 23 09/13/2022 COMP. METAB OLIC PANEL (14) glucose - mg/dL Test not perfo rmed. Serum was in conta ct with cells when recei marcie which will make the resul t inacc urate . Not Available [facility] ([facility]) [address] [place], [address], 09/13/2022 04:11:23 09/13/19 23 09/13/2022 COMP. METAB OLIC PANEL (14) BUN 15 mg/dL 6-24 Not Available [facility] ([facility]) [address] [place], [address], 09/13/2022 04:11:23 09/13/19 23 09/13/2022 COMP. METAB OLIC PANEL (14) creatinine 0.63 mg/dL 0.57-1 .00 Not Available [facility] ([facility]) [address] [place], [address], 09/13/2022 04:11:23 09/13/19 23 09/13/2022 COMP. METAB OLIC PANEL (14) eGFR 102 mL/mi n/1.7 3 >59 Not Available [facility] ([facility]) [address] [place], [address], 09/13/2022 04:11:23 09/13/19 23 09/13/2022 COMP. METAB OLIC PANEL (14) BUN/creatini ne ratio 24 9-23 above high normal Not Available [facility] ([facility]) [address] [facility], [place], [address], 09/13/2022 04:11:23 09/13/19 23 09/13/2022 COMP. METAB OLIC PANEL (14) sodium 140 mmol/ L 134-14 4 Not Available [facility] ([facility]) [address] [place], [address], 09/13/2022 04:11:23 09/13/19 23 09/13/2022 COMP. METAB OLIC PANEL (14) potassium - mmol/ L Test not perfo rmed. Serum was in conta ct with cells when recei marcie which will make the resul t inacc urate . Not Available [facility] ([facility]) [address] [place], [address], 09/13/2022 04:11:23 09/13/19 23 09/13/2022 COMP. METAB OLIC PANEL (14) chloride 101 mmol/ L 96-106 Not Available [facility] ([facility]) [address] [place], [address], 09/13/2022 04:11:23 09/13/19 23 09/13/2022 COMP. METAB OLIC PANEL (14) carbon dioxide, total 21 mmol/ L 20-29 Not Available [facility] ([facility]) [address] [place], [address], 09/13/2022 04:11:23 09/13/19 23 09/13/2022 COMP. METAB OLIC PANEL (14) calcium 9.5 mg/dL 8.7-10 .2 Not Available [facility] ([facility]) [address] [place], [address], 09/13/2022 04:11:23 09/13/19 23 09/13/2022 COMP. METAB OLIC PANEL (14) protein, total 7.1 g/dL 6.0-8. 5 Not Available [facility] ([facility]) [address] [place], [address], 09/13/2022 04:11:23 09/13/19 23 09/13/2022 COMP. METAB OLIC PANEL (14) albumin 4.4 g/dL 3.8-4. 9 Not Available [facility] ([facility]) [address] [place], [address], 09/13/2022 04:11:23 09/13/19 23 09/13/2022 COMP. METAB OLIC PANEL (14) globulin, total 2.7 g/dL 1.5-4. 5 Not Available [facility] ([facility]) [address] [place], [address], 09/13/2022 04:11:23 09/13/19 23 09/13/2022 COMP. METAB OLIC PANEL (14) A/G ratio 1.6 1.2-2. 2 Not Available [facility] ([facility]) [address] [place], [address], 09/13/2022 04:11:23 09/13/19 23 09/13/2022 COMP. METAB OLIC PANEL (14) bilirubin, total 0.3 mg/dL 0.0-1. 2 Not Available [facility] ([facility]) [address] [place], [address], 09/13/2022 04:11:23 09/13/19 23 09/13/2022 COMP. METAB OLIC PANEL (14) alkaline phosphatase 129 IU/L 44-121 above high normal Not Available [facility] ([facility]) [address] [facility], [place], [address], 09/13/2022 04:11:23 09/13/19 23 09/13/2022 COMP. METAB OLIC PANEL (14) AST (SGOT) 28 IU/L 0-40 Not Available [facility] ([facility]) [address] [facility] [place], [address], 09/13/2022 04:11:23 09/13/19 23 09/13/2022 COMP. METAB OLIC PANEL (14) ALT (SGPT) 14 IU/L 0-32 Not Available [facility] ([facility]) [address] [facility] [place], [address], 09/13/2022 04:11:23 09/13/19 23 09/13/2022 MAGNE SIUM magnesium 2.2 mg/dL 1.6-2. 3 Not Available [facility] ([facility]) [address] [place], [address], 09/13/2022 04:11:24 09/13/19 23 09/12/2022 CBC WITH DIFFE RENTI AL/PL ATELE T WBC 6.4 x10e3 /uL 3.4-10 .8 Not Available [facility] ([facility]) [address] [place], [address], 09/13/2022 04:11:24 09/13/19 23 09/12/2022 CBC WITH DIFFE RENTI AL/PL ATELE T RBC 4.19 x10e6 /uL 3.77-5 .28 Not Available [facility] ([facility]) [address] [place], [address], 09/13/2022 04:11:24 09/13/19 23 09/12/2022 CBC WITH DIFFE RENTI AL/PL ATELE T hemoglobin 13.0 g/dL 11.1-1 5.9 Not Available [facility] ([facility]) [address] [place], [address], 09/13/2022 04:11:24 09/13/19 23 09/12/2022 CBC WITH DIFFE RENTI AL/PL ATELE T hematocrit 38.8 % 34.0-4 6.6 Not Available [facility] ([facility]) [address] [facility], [place], [address], 09/13/2022 04:11:24 09/13/19 23 09/12/2022 CBC WITH DIFFE RENTI AL/PL ATELE T MCV 93 fL 79-97 Not Available [facility] ([facility]) [address] [facility], [place], [address], 09/13/2022 04:11:24 09/13/19 23 09/12/2022 CBC WITH DIFFE RENTI AL/PL ATELE T MCH 31.0 pg 26.6-3 3.0 Not Available [facility] ([facility]) [address] [facility], [place], [address], 09/13/2022 04:11:24 09/13/19 23 09/12/2022 CBC WITH DIFFE RENTI AL/PL ATELE T MCHC 33.5 g/dL 31.5-3 5.7 Not Available [facility] ([facility]) [address] [place], [address], 09/13/2022 04:11:24 09/13/19 23 09/12/2022 CBC WITH DIFFE RENTI AL/PL ATELE T RDW 12.7 % 11.7-1 5.4 Not Available [facility] ([facility]) [address] [place], [address], 09/13/2022 04:11:24 09/13/19 23 09/12/2022 CBC WITH DIFFE RENTI AL/PL ATELE T platelets 347 x10e3 /uL 150-45 0 Not Available [facility] ([facility]) [address] [place], [address], 09/13/2022 04:11:24 09/13/19 23 09/12/2022 CBC WITH DIFFE RENTI AL/PL ATELE T neutrophils 63 % notest ab. Not Available [facility] ([facility]) [address] [facility], [place], [address], 09/13/2022 04:11:24 09/13/19 23 09/12/2022 CBC WITH DIFFE RENTI AL/PL ATELE T lymphs 26 % notest ab. Not Available [facility] ([facility]) [address] [facility], [place], [address], 09/13/2022 04:11:24 09/13/19 23 09/12/2022 CBC WITH DIFFE RENTI AL/PL ATELE T monocytes 8 % notest ab. Not Available [facility] ([facility]) [address] [facility], [place], [address], 09/13/2022 04:11:24 09/13/19 23 09/12/2022 CBC WITH DIFFE RENTI AL/PL ATELE T eos 2 % notest ab. Not Available [facility] ([facility]) [address] [facility], [place], [address], 09/13/2022 04:11:24 09/13/19 23 09/12/2022 CBC WITH DIFFE RENTI AL/PL ATELE T basos 1 % notest ab. Not Available [facility] ([facility]) [address] [facility], [place], [address], 09/13/2022 04:11:24 09/13/19 23 09/12/2022 CBC WITH DIFFE RENTI AL/PL ATELE T neutrophils (absolute) 4.0 x10e3 /uL 1.4-7. 0 Not Available [facility] ([facility]) [address] [facility], [place], [address], 09/13/2022 04:11:24 09/13/19 23 09/12/2022 CBC WITH DIFFE RENTI AL/PL ATELE T lymphs (absolute) 1.7 x10e3 /uL 0.7-3. 1 Not Available [facility] ([facility]) [address] [facility], [place], [address], 09/13/2022 04:11:24 09/13/19 23 09/12/2022 CBC WITH DIFFE RENTI AL/PL ATELE T monocytes(ab solute) 0.5 x10e3 /uL 0.1-0. 9 Not Available [facility] ([facility]) [address] [facility], [place], [address], 09/13/2022 04:11:24 09/13/19 23 09/12/2022 CBC WITH DIFFE RENTI AL/PL ATELE T eos (absolute) 0.2 x10e3 /uL 0.0-0. 4 Not Available [facility] ([facility]) [address] [facility], [place], [address], 09/13/2022 04:11:24 09/13/19 23 09/12/2022 CBC WITH DIFFE RENTI AL/PL ATELE T baso (absolute) 0.1 x10e3 /uL 0.0-0. 2 Not Available [facility] ([facility]) [address] [place], [address], 09/13/2022 04:11:24 09/13/19 23 09/12/2022 CBC WITH DIFFE RENTI AL/PL ATELE T immature granulocytes 0 % notest ab. Not Available [facility] ([facility]) [address] [place], [address], 09/13/2022 04:11:24 09/13/19 23 09/12/2022 CBC WITH DIFFE RENTI AL/PL ATELE T immature grans (abs) 0.0 x10e3 /uL 0.0-0. 1 Not Available [facility] ([facility]) [address] [place], [address], 09/13/2022 04:11:24 09/13/19 23 09/13/2022 TSH+F REE T4 TSH 4.170 uIU/m L 0.450- 4.500 Not Available [facility] ([facility]) [address] [place], [address], 09/13/2022 04:11:21 09/13/19 23 09/13/2022 TSH+F REE T4 T4,free(dire ct) 1.46 NG/dL 0.82-1 .77 Not Available [facility] ([facility]) [address] [place], [address], 09/13/2022 04:11:21 10/28/19 24 10/29/2023 LIPID PANEL cholesterol, total 201 mg/dL 100-19 9 above high normal Not Available [facility] ([facility]) [address] [place], [address], 10/29/2023 03:08:44 10/28/19 24 10/29/2023 LIPID PANEL triglyceride s 88 mg/dL 0-149 Not Available [facility] ([facility]) [address] [place], [address], 10/29/2023 03:08:44 10/28/19 24 10/29/2023 LIPID PANEL HDL cholesterol 60 mg/dL >39 Not Available [facility] ([facility]) [address] [place], [address], 10/29/2023 03:08:44 10/28/19 24 10/29/2023 LIPID PANEL VLDL cholesterol yu 16 mg/dL 5-40 Not Available [facility] ([facility]) [address] [place], [address], 10/29/2023 03:08:44 10/28/19 24 10/29/2023 LIPID PANEL LDL chol calc ([facility]) 125 mg/dL 0-99 above high normal Not Available [facility] ([facility]) [address] [facility] [place], [address], 10/29/2023 03:08:44 10/28/19 24 10/29/2023 COMP. METAB OLIC PANEL (14) glucose 82 mg/dL 70-99 Not Available [facility] ([facility]) [address] [facility] [place], [address], 10/29/2023 03:08:44 10/28/19 24 10/29/2023 COMP. METAB OLIC PANEL (14) BUN 15 mg/dL 8-27 Not Available [facility] ([facility]) [address] [facility] [place], [address], 10/29/2023 03:08:44 10/28/19 24 10/29/2023 COMP. METAB OLIC PANEL (14) creatinine 0.72 mg/dL 0.57-1 .00 Not Available [facility] ([facility]) [address] [facility] [place], [address], 10/29/2023 03:08:44 10/28/19 24 10/29/2023 COMP. METAB OLIC PANEL (14) eGFR 96 mL/mi n/1.7 3 >59 Not Available [facility] ([facility]) [address] [facility] [place], [address], 10/29/2023 03:08:44 10/28/19 24 10/29/2023 COMP. METAB OLIC PANEL (14) BUN/creatini ne ratio 21 12-28 Not Available [facility] ([facility]) [address] [facility] [place], [address], 10/29/2023 03:08:44 10/28/19 24 10/29/2023 COMP. METAB OLIC PANEL (14) sodium 138 mmol/ L 134-14 4 Not Available [facility] ([facility]) [address] [facility] [place], [address], 10/29/2023 03:08:44 10/28/19 24 10/29/2023 COMP. METAB OLIC PANEL (14) potassium 4.8 mmol/ L 3.5-5. 2 Not Available [facility] ([facility]) [address] [facility] [place], [address], 10/29/2023 03:08:44 10/28/19 24 10/29/2023 COMP. METAB OLIC PANEL (14) chloride 101 mmol/ L 96-106 Not Available [facility] ([facility]) [address] [facility], [place], [address], 10/29/2023 03:08:44 10/28/19 24 10/29/2023 COMP. METAB OLIC PANEL (14) carbon dioxide, total 23 mmol/ L 20-29 Not Available [facility] ([facility]) [address] [facility] [place], [address], 10/29/2023 03:08:44 10/28/19 24 10/29/2023 COMP. METAB OLIC PANEL (14) calcium 9.8 mg/dL 8.7-10 .3 Not Available [facility] ([facility]) [address] [facility] [place], [address], 10/29/2023 03:08:44 10/28/19 24 10/29/2023 COMP. METAB OLIC PANEL (14) protein, total 7.1 g/dL 6.0-8. 5 Not Available [facility] ([facility]) [address] [facility] [place], [address], 10/29/2023 03:08:44 10/28/19 24 10/29/2023 COMP. METAB OLIC PANEL (14) albumin 4.5 g/dL 3.8-4. 9 Not Available [facility] ([facility]) [address] [facility] [place], [address], 10/29/2023 03:08:44 10/28/19 24 10/29/2023 COMP. METAB OLIC PANEL (14) globulin, total 2.6 g/dL 1.5-4. 5 Not Available [facility] ([facility]) [address] [place], [address], 10/29/2023 03:08:44 10/28/19 24 10/29/2023 COMP. METAB OLIC PANEL (14) bilirubin, total 0.4 mg/dL 0.0-1. 2 Not Available [facility] ([facility]) [address] [facility], [place], [address], 10/29/2023 03:08:44 10/28/19 24 10/29/2023 COMP. METAB OLIC PANEL (14) alkaline phosphatase 116 IU/L 44-121 Not Available [facility]) [address] [facility], [place], [address], 10/29/2023 03:08:44 10/28/19 24 10/29/2023 COMP. METAB OLIC PANEL (14) AST (SGOT) 22 IU/L 0-40 Not Available [facility] ([facility]) [address] [place], [address], 10/29/2023 03:08:44 10/28/19 24 10/29/2023 COMP. METAB OLIC PANEL (14) ALT (SGPT) 14 IU/L 0-32 Not Available [facility] ([facility]) [address] [place], [address], 10/29/2023 03:08:44 10/28/19 24 10/28/2023 CBC, PLATE LET, NO DIFFE RENTI AL WBC 6.9 x10e3 /uL 3.4-10 .8 Not Available [facility] ([facility]) [address] [place], [address], 10/29/2023 03:08:45 10/28/19 24 10/28/2023 CBC, PLATE LET, NO DIFFE RENTI AL RBC 4.23 x10e6 /uL 3.77-5 .28 Not Available [facility] ([facility]) [address] [facility], [place], [address], 10/29/2023 03:08:45 10/28/19 24 10/28/2023 CBC, PLATE LET, NO DIFFE RENTI AL hemoglobin 13.0 g/dL 11.1-1 5.9 Not Available [facility] ([facility]) [address] [facility], [place], [address], 10/29/2023 03:08:45 10/28/19 24 10/28/2023 CBC, PLATE LET, NO DIFFE RENTI AL hematocrit 39.4 % 34.0-4 6.6 Not Available [facility] ([facility]) [address] [facility], [place], [address], 10/29/2023 03:08:45 10/28/19 24 10/28/2023 CBC, PLATE LET, NO DIFFE RENTI AL MCV 93 fL 79-97 Not Available [facility] ([facility]) [address] [facility], [place], [address], 10/29/2023 03:08:45 10/28/19 24 10/28/2023 CBC, PLATE LET, NO DIFFE RENTI AL MCH 30.7 pg 26.6-3 3.0 Not Available [facility] ([facility]) [address] [facility], [place], [address], 10/29/2023 03:08:45 10/28/19 24 10/28/2023 CBC, PLATE LET, NO DIFFE RENTI AL MCHC 33.0 g/dL 31.5-3 5.7 Not Available [facility] ([facility]) [address] [facility], [place], [address], 10/29/2023 03:08:45 10/28/19 24 10/28/2023 CBC, PLATE LET, NO DIFFE RENTI AL RDW 12.6 % 11.7-1 5.4 Not Available [facility] ([facility]) [address] [facility], [place], [address], 10/29/2023 03:08:45 10/28/19 24 10/28/2023 CBC, PLATE LET, NO DIFFE RENTI AL platelets 352 x10e3 /uL 150-45 0 Not Available [facility] ([facility]) [address] [facility], [place], [address], 10/29/2023 03:08:45 09/20/19 22 09/19/2021 XR, chest , 2 view No observ ation record ed. [address] [facility], [place], [address], 09/19/2021 22:23:37 10/18/19 23 10/17/2022 MAMMO , scree cristino, digit al, bilat eral No observ ation record ed. [address] [facility], [place], [address], 10/17/2022 18:22:43 Result Notes None recorded. 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 Completed 201710/03/2023 Breanna Montez MD Attn: Accounting ,[address] [facility], [place], [place], [address] , [facility] 4 09:17:01 Pain of joint of wrist 199337272 Completed 201710/03/2023 Breanna Montez MD Attn: Accounting ,[address] [facility], [place], [address] , [facility] 4 09:17:04 High density lipoprot ein deficien cy 705020643 Active 2019 Breanna Montez MD Attn: Accounting ,[address] [place], [address] , [facility] 3 17:54:05 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 Location : None;Sev erity: Moderate ;Progres s: Stable;A dded By: Breanna Montez;Add to Current Problems : YES Not Available [facility] 7 00:19:13 Screenin g for malignan t neoplasm of colon Completed 201303/17/2017 Location : None;Sev erity: Moderate ;Progres s: Stable;A dded By: Breanna Montez;Add to Current Problems : YES Breanna Montez MD Attn: Accounting ,[address] [facility], [place], [address] , [facility] 7 16:58:00 Acute upper respirat ory infectio n of multiple sites Completed 201508/05/2015 Location : None;Sev erity: Moderate ;Progres s: Stable;A dded By: More Lemons i;A dd to Current Problems : NO Not Available [facility] 7 00:19:13 Shoulder joint pain 585605213 Completed 201508/05/2015 Location : None;Sev erity: Moderate ;Progres s: Stable;A dded By: More Lemons i;A dd to Current Problems : YES Not Available [facility] 7 00:19:13 Irritabl e bowel syndrome 09381324 Active 2013 Location : None;Sev erity: Moderate ;Progres s: Stable;A dded By: More Lemons i;A dd to Current Problems : YES Not Available [facility] 7 00:19:13 Malaise and fatigue 701263729 Completed 201403/17/2017 Location : None;Sev erity: Moderate ;Progres s: Stable;A dded By: More Lemons i;A dd to Current Problems : YES Breanna Montez MD Attn: Accounting ,[address] , [place], [address] , [facility] 7 16:57:54 Thyroid disorder screenin g Completed 201508/01/2015 Location : None;Sev erity: Moderate ;Progres s: Stable;A dded By: More Lemons i;Chandana dd to Current Problems : NO Not Available [facility] 7 00:19:13 Problem Notes None recorded. Procedures Surgical History Date Name Laterality Status Provider Name and Address Organization Details Recorded Time 9 Date of Last Pap Smear completed Deidra Mon MA [facility] 10/26/2019 12:07:48 8 Date of Last Mammogram completed Deidra Mon MA [facility] 10/26/2019 12:07:29 Imaging Results Imaging Date Name Status LastModified by Organiz ation Details LastModified Time 09/19/2021 XR, chest, 2 view completed [address], [address], 09/19/2021 22:23:37 10/17/2022 MAMMO, screening, digital, bilateral completed [address] [place], [address], 10/17/2022 18:22:43 Procedure Notes None recorded. Medical Equipment None Reported. Allergies Allergen ID Allergen Name Allergen Category Reaction Reaction Severity Criticality Documentation Date Start Date Code Code System Note Provider Name and Address Organization Details Recorded Time 83869 Bactrim medicatio n hives Not available Not available 03/27/2016 75074 9 RxNorm More Hawkins ma null, [place] 8 11:46:23 [id number] Bactrim medicatio n hives moderate Not available 04/24/20162013 96430 9 RxNorm React ion: hives ;Minerva rity: Moder ate; Comme nt: Aller gy Type: Aller gy; Not Available [facility] 7 03:50:20 Medications Name Sig Start Date Stop Date Status Note LastModified by Organization Details LastModified Time azithromyc in 250 mg tablet Take 2 tablet(s) by mouth on day 1 then 1 tablet every day for the next 4 days. 09/03 completed Not Available Not Available Not Available diltiazem CD 180 mg capsule,ex tended release 24 hr TAKE 1 CAPSULE BY MOUTH EVERY DAY active Not Available Not Available No t Available benzonatat e 200 mg capsule TAKE 1 CAPSULE BY MOUTH THREE TIMES DAILY FOR 7 DAYS 08/23 completed Not Available Not Available Not Available levothyrox ine 75 mcg tablet TAKE 1 TABLET BY MOUTH DAILY active Not Available Not Available No t Available ciclopirox 8 % topical solution 03/28 completed Not Available Not Available Not Available hyoscyamin e 0.125 mg disintegra ting tablet dissolve one tablet under tongue tid prn 09/08 completed Allow Substi tution : True Not Available Not Available Not Available levothyrox ine 50 mcg tablet Take 1 tablet every day by oral route. 10/25 completed Not Available Not Available Not Available methylpred nisolone 4 mg tablets in a dose pack FOLLOW PACKAGE DIRECTION S 09/03 completed Not Available Not Available Not Available fluticason e propionate 50 mcg/actuat ion nasal spray,susp ension USE 1 TO 2 SPRAYS IN EACH NOSTRIL EVERY DAY active Not Available Not Available No t Available doxycyclin e hyclate 100 mg tablet TAKE 1 TABLET BY MOUTH DAILY 08/23 completed Not Available Not Available Not Available amoxicilli n 875 mg-potassi um clavulanat e 125 mg tablet TAKE 1 TABLET BY MOUTH EVERY 12 HOURS FOR 7 DAYS 08/23 completed Not Available Not Available Not Available Kelnor 1/35 (28) 1 mg-35 mcg tablet TAKE 1 TABLET BY ORAL ROUTE ONCE DAILY DIRECTED 10/10 completed Not Available Not Available Not Available Kelnor 1/35 (28) Take 1 tab po daily as directed 03/28 completed Not Available Not Available Not Available diclofenac 1 % topical gel apply to affected area prn 2020 active Not Available Not Available Not Avai lable Vitals Date Recorded Body weight Body temperature Oxygen saturation Oxygen saturation in Arterial blood by Pulse oximetry Heart rate Systolic blood pressure Diastolic blood pressure Provider Name and Address Organization Details Last Updated DateTime 1 12065.2 8 g 97.7 [degF] 97 % 97 % 69 /min 102 mm[Hg] 68 mm[Hg] Jasmine Joyce MA [facility] 1 15:46:17 Date Recorded Body height Body mass index (BMI) Body weight Body temperature Oxygen saturation Oxygen saturation in Arterial blood by Pulse oximetry Heart rate Systolic blood pressure Diastolic blood pressure Provider Name and Address Organization Details Last Updated DateTime 3 167.64 cm 22.7 kg/m2 86809.0 3 g 97.7 [degF] 98 % 98 % 72 /min 101 mm[Hg] 63 mm[Hg] Jasmine Joyce MA [facility] 3 12:01:38 Date Recorded Body weight Body mass index (BMI) Body height Body temperature Heart rate Oxygen saturation Oxygen saturation in Arterial blood by Pulse oximetry Systolic blood pressure Diastolic blood pressure Provider Name and Address Organization Details Last Updated DateTime 4 36458.6 7 g 23.9 kg/m2 167.64 cm 97.6 [degF] 71 /min 97 % 97 % 94 mm[Hg] 65 mm[Hg] Tatiana Yadav MA [facility] 4 10:38:39 Social History Question Answer Notes LastModified by Organizat ion Details LastModified Time Tobacco Smoking Status Never Smoker More Lloyd murry [facility] 03/27/2016 13:42:12 Do You Have An Advance Directive? No Information not available 03/28/2021 What Is Your Level Of Alcohol Consumption? Occasional Information not available 03/28/2021 Are You Blind Or Do You Have Difficulty Seeing? No Information not available 03/28/2021 What Is Your Level Of Caffeine Consumption? Moderate Information not available 03/28/2021 Are You Currently Employed? Yes Information not available 03/28/2021 Are You Deaf Or Do You Have Serious Difficulty Hearing? No Information not available 03/28/2021 What Type Of Diet Are You Following? REGULAR Information not available 03/28/2021 What Was The Date Of Your Most Recent Tobacco Screening? 10/03/2023 [email or web address] Information not available 10/03/2023 What Is Your Relationship Status? Information not available 03/28/2021 Do You Use Your Seat Belt Or Car Seat Routinely? Yes Information not available 03/28/2021 Do You Have Smoke And Carbon Monoxide Detectors In Your Home? Yes Information not available 08/23/2021 Are You Passively Exposed To Smoke? No Information no t available 08/23/2021 Do You Feel Stressed (tense, Restless, Nervous, Or Anxious, Or Unable To Sleep At Night)? [id number] Information not available 03/28/2021 Sex: Female Functional Status Question Answer Note LastModified by Organization D etails LastModified Time Are you able to care for yourself? Yes Information not available 03/28/2021 What is your exercise level? Moderate Information not available 03/28/2021 Mental Status None recorded. Family History Relationship Description Onset Age of this Age Resolved Age Notes LastModified by Organization Details LastModified Time Mother Asthma [email or web address] Not availab le 03/28/2016 12:36:43 Mother Disorder of thyroid gland [email or web address] Not available 11/2015 12:37:06 Mother Heart disease [email or web address] Not available 11/2015 12:37:13 Mother Migraine [email or web address] Not avail able 03/28/2016 12:37:19 Sister Depressive disorder [email or web address] Not available 11/2015 12:36:52 Father Disorder of thyroid gland [email or web address] Not available 11/2015 12:37:06 Medical History Condition Response Thyroid Problems Y GI Problems Y Allergies Y Gynecological History Statement/Question Response Menses Monthly N If Post Menopausal, Age at Menopause 51 Date of Last Pap Smear 05/26/2018 Age at Menarche 10 Date of Last Mammogram 11/14/2017 Age at First Child 24 Obstetrics History GPAL:G 0 P 0 0 0 0 Immunizations Vaccine Type Date Status Note Provider Nam e and Address Organization Details Recorded Time Influenza, split virus, quadrivalent, preservative 9 completed Not Available [facility] 03/24/2022 12:33:28 Influenza, split virus, quadrivalent, preservative 0 completed Not Available [facility] 03/24/2022 12:33:28 Influenza, split virus, quadrivalent, preservative 1 completed Not Available [facility] 03/24/2022 12:33:28 COVID-19, mRNA, LNP-S, PF, 100 mcg/0.5mL dose or 50 mcg/0.25mL dose 1 completed Breanna Montez MD Attn: Accounting,[address] [facility], [place], [place], [address] [place] [address], [place] [facility] 10/03/2023 09:15:22 COVID-19, mRNA, LNP-S, PF, 100 mcg/0.5mL dose or 50 mcg/0.25mL dose 1 completed Breanna Montez MD Attn: Accounting,[address] [facility], [place], [address] [place] [address], [place] [facility] 10/03/2023 09:15:22 COVID-19, mRNA, LNP-S, PF, 100 mcg/0.5mL dose or 50 mcg/0.25mL dose 1 completed Breanna Montez MD Attn: Accounting,[address] [facility], [place], [address] [place] [address], [place] [facility] 10/03/2023 09:15:22 influenza, unspecified formulation 2 completed Not Available [facility] 03/24/2022 12:33:28 COVID-19, mRNA, LNP-S, PF, 100 mcg/0.5mL dose or 50 mcg/0.25mL dose 2 completed Breanna Montez MD Attn: Accounting,[address] [facility], [place], [address] [place] [address], [place] [facility] 10/03/2023 09:15:22 COVID-19, mRNA, LNP-S, bivalent, PF, 50 mcg/0.5 mL or 25mcg/0.25 mL dose 2 completed Breanna Montez MD Attn: Accounting,[address] [facility], [place], [address] [place] [address], [place] [facility] 10/03/2023 09:15:22 zoster recombinant 4 completed Breanna Montez MD Attn: Accounting,[address] [facility], [place], [address], [facility] 10/03/2023 10:50:07 COVID-19, mRNA, LNP-S, PF, gato-sucrose, 30 mcg/0.3 mL 3 completed Breanna Montez MD Attn: Accounting,[address] [facility], [place], [address] [place] [address], [facility] 10/03/2023 10:50:07 influenza, unspecified formulation 3 completed Breanna Montez MD Attn: Accounting,[address] [facility], [place], [address], [facility] 10/03/2023 10:55:57 influenza, unspecified formulation 4 completed Lisette murry, [facility] 02/10/2024 09:48:00 Tdap 0 completed MARSHAL Angela, [facility] 10/26/2019 12:59:49 Influenza, split virus, quadrivalent, preservative 6 completed Not Available [facility] 03/24/2022 12:33:28 Tdap 8 completed Not Available [facility] 03/24/2022 12:33:28 Influenza, split virus, trivalent, PF 5 completed Not Available [facility] 03/24/2022 12:33:28 Influenza, split virus, trivalent, preservative 4 completed Not Available [facility] 03/24/2022 12:33:28 Influenza, split virus, quadrivalent, preservative 7 completed Not Available [facility] 03/24/2022 12:33:28 Past Encounters Encounter ID Performer Location Encounter Start Date Encounter Closed Date Diagnosis/Indication Diagnosis SNOMED-CT Code Diagnosis ICD10 Code Diagnosis Note [id number] Breanna Montez MD [facility] [address] [place] [address] 03/28/2016 11:49:15 03/29/2016 09:51:19 History of supraventricular tachycardia 9955728046 4766458 Z86.79 Go ot ER if lasting >20 min or if asssociate d with Chest Pain or breathing trouble-- go to the ER. Advised NO CAFFEINE Hypothyroidism 82163650 E03.9 Contracept ion care management 059140880 Z30.9 you willl use back up contracept ion for a month and stop the OCs. 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 Advised NO CAFFEINE Contracept ion care management 811348291 Z30.9 you willl use back up contracept ion for a month and stop the OCs. Then get an FSH to see if menopausal Allergic rhinitis 008365 04 J30.9 avoid mold and removal of mold from home recommende d [id number] Breanna Montez MD [facility] [address] [place] [address] 03/17/2017 16:08:47 03/17/2017 17:26:34 Screening for malignant neoplasm of breast 671496502 Z12.39 Adult [facility] examination 634387907 Z00.00 declines lab testing again aside from thyroid. No lipids. Stay active. 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 may need PT for the patellofem oral syndrome Pain of tu int of wrist 423301017 M25.539 if not improved with the MDP for the wrist-- will need XRAY and hand referral-- otherwise [id number] Breanna Montez MD [facility] [address] [place] [address] 02/11/2018 15:47:38 02/12/2018 09:28:22 Idiopathic polyarthritis 41521417 M06.4 screening for causes with further plans pending outcome of several -tests Hypothyroidism 38041779 E03.9 Pure hypercholesterolemia 749340910 E78.00 non fasting at this time since due for this test in a few weeks [id number] Breanna Montez MD [facility] [address] [facility] [place] [address] [facility] [address] 02/24/2018 16:51:43 02/25/2018 10:07:32 Hypothyroidism 58442687 E03.9 [id number] Breanna Montez MD [facility] [address] [facility] [place] [address] [facility] [place] [address] 05/26/2018 16:03:23 05/27/2018 08:13:12 Gynecologic examination 34211750 Z01.419 last mammogram was 11/14/17 and normal Thyroid di sorder screening 423053753 Z13.29 you will see endocrinol ogist regarding this in a few weeks-- and will assess your weight status Paroxysmal supraventricular tachycardia 11845444 I47.1 reassured and educated as to caution for interventi on-- if associated with trouble breathing or chest pain or if lasting longer than 20 minutes- to go to the Er. Continue with Diltiazem. Advised to try MAG OX 400 mg daily or foods high in magnesium to help with palpitatio ns [id number] Breanna Montez MD [facility] [address] [facility] [place] [address] [place] [address] 10/26/2019 11:49:06 10/26/2019 13:28:43 Adult health examination 529130849 Z00.00 Administra tion of diphtheria, pertussis, and tetanus vaccine 300455079 Z23 last tetanus was 2007-- due for update Screening mammography 24 202373 Z12.31 last mammogram was 2018-- order printed Paroxysmal supraventricular tachycardia 71654860 I47.1 if palpitatio ns are associated with trouble breathing or chest pain or if lasting longer than 20 minutes- to go to the Er. Continue with Diltiazem. Hypothyroidism 65503879 E03.9 follow up regarding this diagnosis with endocrinol ogist Menopause present 893883 006 N95.1 will recommend the DEXA scan at age 63-- sooner if fracture or other issue develops High densi ty lipoprotein deficiency 766296791 E78.6 lab check since last HDL was low 2018 Fatigue 23354761 R53.83 blood counts for anemia and check for diabetes or kidney issues ordered-- printed order given for patient to have testing done [id number] Breanna Montez MD [facility] [address] [place] [address] 03/28/2021 15:29:59 03/29/2021 11:50:49 Adult health examination 220802435 Z00.00 exercise and eat balanced diet. Strive for 8,000 steps per day Loss of hair 627171585 L 65.9 check thyroid with results to her endocrinol ogist Fatigue 67287217 R53.83 blood counts for anemia and check for diabetes or kidney issues ordered with results to endocrinol ogist Foot pain 84891545 M79.6 73 use diclofenac as needed for plantar fasciitis Screening mammography 24 619087 Z12.31 last mammogram was 2018-- order printed and encouraged to schedule [id number] Breanna Montez MD [facility] [address] [place] [address] 08/23/2021 12:24:53 08/23/2021 15:50:02 Acute sinusitis 71687092 J01.90 treatment optionsrec heck COVID screen if not improving wtih treatment- - for PAXLOVID if positivesa line irrigation OK to cont MUCINEX and PSEUDOEPHE DRINE as needed [id number] Breanna Montez MD [facility] [address] [place] [address] 09/03/2021 13:14:55 09/03/2021 15:13:18 Acute maxillary sinusitis 55001588 J01.00 COVID testing Friday when symptoms got worse was negative. Will try different antibiotic and tessalon pearles for cough. Get plenty of rest, push fluids, vaporizer, saline nasal spray, robitussin for cough prn, tylenol for POLANCO prn, call back if persistent colored nasal drainage or sputum, fevers, sinus pain, SOB. Cough 66454131 R05.9 [id number] Breanna Montez MD [facility] [address] [place] [address] 08/23/2022 11:47:36 08/23/2022 16:34:01 Adult health examination 088026454 Z00.00 exercise and eat balanced diet. Strive for 8,000 steps per day Paroxysmal supraventricular tachycardia 44453994 I47.1 if palpitatio ns are associated with trouble breathing or chest pain or if lasting longer than 20 minutes- she is advised to go to the Er.Continu e with Diltiazem. will check ECHO and holter monitor since complaint of increase palpitatio nswill check labs-- thyroid/ electrolyt es/ anemia check/ etc Hypothyroidism 82988967 E03.9 follow up regarding this diagnosis with endocrinol ogist Hyperlipidemia 85545970 E78.5 mild changes in 2020-- total chol 204 and LDL 129-- HDL was normalchec k FLP since other testing is planned History of supraventricular tachycardia 9908731369 5545854 Z86.79 Go ot ER if lasting >20 min or if associated with Chest Pain or breathing trouble-- go to the ER. Advised NO CAFFEINE-- she reports she does not need refill of diltiazem today and will await testing before refill sent ( dose adjustment possible) Screening mammography 24 304751 Z12.31 last mammogram was 2018-- order printed and encouraged to schedule Immunization advised 310 510595 Z71.9 she will set up SHINGRIX with her pharmacy-- common reactions and formulatio n discussed Gynecologi c examination 16823260 Z01.419 last mammogram was 11/14/17 and normal [id number] Breanna Montez MD [facility] [address] [place] [address] 10/03/2023 10:23:04 10/03/2023 17:21:03 Adult health examination 613592356 Z00.00 exercise and eat balanced diet. Strive for 8,000 - 10,000 steps per day7 fruits and vegetables per day-- try to eat no sugar added to anything. strive to eat Real food ' Immunization advised 310 287170 Z71.9 advised to set up SHINGRIX with her pharmacy-- common reactions and formulatio n discussed- - she will get #2 before October 2023 Hypothyroidism 40119319 E03.9 follow up regarding this diagnosis with endocrinol ogist-- no need for TSH /lab here since done with endocrinol ogist High densi ty lipoprotein deficiency 231873024 E78.6 lab check since last HDL was low 2017-- she will have lab drawn when fasting Long-term drug therapy 602165853 Z79.899 routine lab orders for When fasting-- printed order for patient to take to lab when she plans to have drawn Screening for malignant neoplasm of breast 625864484 Z12.39 she requested paper order-- printed order and due on or after 10/18/23 Health Concerns Section Related Observation LastModified by Organization Detai ls LastModified Time None Recorded Concern Status LastModified by Organization Details LastModified Time None Recorded Advance Directives Directive N: Payers Encounter Date Sequence Insurance Name Policy Number Policy Sanabria Covered Member ID Sanabria Member ID Guarantor Name 03/28/2021 1 [employer] - CHOICE (POS II) [id number] Jazmine G Kwabena [id number] Jazmine G Kwabena 08/23/2021 1 [employer] - CHOICE (POS II) [id number] Jazmine G Kwabena [id number] Jazmine G Kwabena 09/03/2021 1 [employer] - CHOICE (POS II) [id number] Jazmine G Kwabena [id number] Jazmine G Kwabena 08/23/2022 1 [employer] - CHOICE (POS II) [id number] Jazmine G Kwabena [id number] Jazmine G Kwabena 10/03/2023 1 [employer] - CHOICE (POS II) [id number] Jazmine G Kwabena [id number] Jazmine G Kwabena Notes Date Note Type Note Provider Name and Address Organization Details Recorded Time 03/28/2021 text/html here for annual exam Breanna summers MD Attn: Accounting,[address] [place], [address], [facility] 03/28/2021 20:36:36 08/23/2021 text/html Sinusitis/Allerg yRepor malik bypatient.Associated Symptoms:no fever; no weight loss; no hemoptysis; no hematemesis; no difficulty breathing; no feeling of strangulation; no nasal passage blockage; no nasal itching; no eye itching; no pain behind the eyes; no skin itching;nasal discharge from nostrils;nausea or vomiting(from coughing she vomited);headache;faci al pain;sinus pain;sore throat;thick phlegm in throat;constantly clearing the throat;ear fullness; fatigue Onset/Timing:initially started 3days ago; took a home covid test yesterday morning and it was negative. Quality:worsening;achi ng;dull;congested;colo red phlegm(greenish yellow);productive cough; pressure Duration:constant Severity:no nosebleeds (epistaxis);limits daily activities Context:no recent upper respiratory infection;recent sick contacts(co workers) Risk Factors:no current smoking or tobacco use; no history of asthma Alleviating factors:relief with OTC meds pseudofed (mucinex) Breanna Montez MD Attn: Accounting,[address] [place], [address], [facility] 08/23/2021 15:06:59 09/03/2021 text/html Sinusitis/Allerg yRepor malik bypatient.Associated Symptoms:no weight loss; no hemoptysis; no hematemesis; no feeling of strangulation; no nasal passage blockage; no nasal itching; no eye itching; no pain behind the eyes; no skin itching;nasal discharge from nostrils;fever/chills( pt did have a fever 100.5- subsided overnight- happened 2x's last weeks);difficulty breathing;nausea or vomiting(from coughing she vomited);headache;faci al pain;sinus pain;sore throat;thick phlegm in throat;constantly clearing the throat;ear fullness(pain); fatigue- productive hacking cough- SOB- little bit of diarrhea Onset/Timing:initially started 2weeks ago Quality:worsening;weak voice;aching;dull;sonny ested;colored phlegm(greenish yellow);productive cough; pressure Duration:continuous; constant; had 1 sinus infections treated with antibiotics in the last year Severity:no nosebleeds (epistaxis); moderate;limits daily activities;interferenc e with work;frequent breathing through the mouth Context:no recent upper respiratory infection;recent sick contacts(co workers) Risk Factors:no current smoking or tobacco use; no history of asthma Alleviating factors:relief with OTC meds pseudofed (mucinex);no relief with antibiotics;no relief with nasal steroid Aggravating factors:worse with certain sleeping positions; worse with excess fatigue pt was given antibiotics and steriod pack on the 08/23/21pt had a covid test home test several- all negativeSymptoms started to worsen on Friday-covid tested friday and was negative. Clear phlegm. Steroid and abx took away green phlem. Coughing never completely went. KEV Harris Attn: Accounting,[address] [place], [address], [facility] [place]/03/[place]21 14:22:15 08/23/2022 text/html here for an kimberly al check up Breanna Montez MD Attn: Accounting,[address] [place], [address], [facility] [place] 08/23/2022 12:53:51 10/03/2023 text/html needs order for mammogramnot fasting today Breanna Montez MD Attn: Accounting,[address] [place], [address], [facility] [place] 10/03/2023 11:05:29 OBGyn Episode No OBEpisode recorded.
--- OUTSIDE RECORDS SUMMARY | 2024-08-23 12:51 | XMS_ITS | Clinical Summary ---
Author Organization [facility] Address [address] [place] [address] Care Team Providers Care Silk Screen Repairer Name Role Phone Breanna Castañeda MD Primary Care Provider [phone] Allergies Active Allergy Reactions Criticality Noted Date Comments Sulfamethoxazole-Trimethoprim Hives Medium 2013 Medications levothyroxine (SYNTHROID) 75 MCG tablet Take 1 tablet (75 mcg total) by mouth daily. Active B Complex Vitamins Cap Take 1 capsule by mouth daily. Active Calcium 500 MG Tab Take 1 tablet by mouth daily. 3 Active Cholecalciferol 10 MCG (400 UNIT) Cap Active Cyanocobalamin 1000 MCG Tab CR Take by mouth Active diclofenac sodium (VOLTAREN) 1 % gel diclofenac 1 % topical gel apply to affected area prn Active fluticasone propionate (FLONASE) 50 MCG/ACT nasal spray USE 1 TO 2 SPRAYS IN EACH NOSTRIL EVERY DAY 3 Active loratadine (CLARITIN) 10 MG tablet Take 1 tablet (10 mg total) by mouth daily. Active Multiple Vitamin (MULTIVITAMIN) capsule Take 1 capsule by mouth daily. Active omega-3 fatty acid (FISH OIL) 1000 MG capsule Take 1 capsule (1,000 mg total) by mouth daily. 3 Active omeprazole (PRILOSEC) 20 MG capsule Take 1 capsule (20 mg total) by mouth daily. 3 Active raNITIdine (ZANTAC) 150 MG tablet Take 1 tablet (150 mg total) by mouth daily as needed. 3 Active Family History Medical History Relation Comments Asthma Father Heart Disease Mother Relation Status Comments Father Alive Mother Alive Social History Tobacco Use Types Packs/Day Years Used Date Smoking Tobacco: Never Passive Smoke Exposure: Never Smokeless Tobacco: Never Tobacco Cessation:Counseling Given: No Alcohol Use Standard Drinks/Week Comments Yes 0 (1 standard drink = 0.6 oz pur e alcohol) on occ PHQ-2 Answer Date Recorded Patient Health Questionnaire-2 Score 0 08/06/2023 Comments No Sex and Gender Information Value Date Recorded Sex Assigned at Not on file Legal Sex Female 6:32 PM CDT Gender Identity Not on file Sexual Orientation Not on file Last Filed Vital Signs Vital Sign Reading Time Taken Comments Blood Pressure 84/48 08/06/2023 7:23 AM CDT Pulse 48 08/06/2023 7:23 AM CDT Temperature 36.4 C (97.5 F) 08/06/2023 7:23 AM CDT Respiratory Rate - - Oxygen Saturation - - Inhaled Oxygen Concentration - - Weight 65.1 kg (143 lb 9.6 oz) 08/06/2023 7:23 A M CDT Height 167.6 cm (5' 6 ) 03/05/2013 3:00 PM CLINICAL MEDICAL TRANSCRIPTIONIST Body Mass Index - - Plan of Treatment Health Maintenance Due Date Last Done Comments Cervical Cancer Screening Pap Smear (Age 30 to 64) Every 3 Years 1965 Colorectal Cancer Screening Colonoscopy (10 Years) 1965 Annual Physical 1966 Hepatitis C 1981 Cervical Cancer Screening Pap with HPV Testing (Age 30 to 64) Every 5 Years 1993 Cervical Cancer Screening with HPV 1993 Mammogram Screening 2003 Pneumococcal Vaccine: 50+ Years (1 of 1 - PCV) 2013 Zoster Vaccines (2 of 2) 06/30/2023 05/05/2023 COVID-19 Vaccine (2023- season) 2023 01/26/2023, 02/02/2022, 09/19/2021, Additional history exists PHQ-2 (Physician [place]) 04/21/2024 08/06/2023 DTaP, Tdap and Td Vaccines (4 - Td or Tdap) 10/25/2029 10/26/2019, 02/25/2008, 07/04/2006 RSV Immunization or 60+ Years (1 - 1-dose 75+ series) 2038 Meningococcal B Vaccine Aged Out No l onger eligible based on patient's age to complete this topic Meningococcal Vaccine Aged Out No mateus jazlyn eligible based on patient's age to complete this topic RSV Immunizations Under 20 Months Aged Out No longer eligible based on patient's age to complete this topic Insurance [employer] Care Teams Silk Screen Repairer Relationship Specialty Start Date End Date Breanna Castañeda MD [address] [address] PCP - General FAMILY PRACTICE 10/07/22
== END 2024-08-23 12:28 | disposition home or self-care (01) ==
LOC: ANHIMG 12:31
PROVIDERS: PCP Internal Medicine Endocrinology, Diabetes & Metabolism; Visit Provider Internal Medicine Endocrinology, Diabetes & Metabolism
DX: M81.0 Age-related osteoporosis without current pathological fracture (principal); M85.89 Other specified disorders of bone density and structure, multiple sites; Z78.0 Asymptomatic menopausal state
CPT/HCPCS: 77080